=== PATIENT | female | born 1990 | race Caucasian/White ===

== ENCOUNTER 2023-12-07 11:58 | Emergency (ER) | payer OTHER, SELFPAY ==
[2023-12-07 12:02] VITALS: BP 122/88
--- NOTE | 2023-12-07 12:34 | ED.GENMED ---
History of Present Illness
<Magdalene Rojas PA-C - Last Filed: 12/07/23 15:38>
General
Chief Complaint: Abdominal Symptoms
Source: patient
Exam Limitations: none
Time Seen by Provider: 12/07/23 12:34
Nursing documentation reviewed up to this point in time: agreed with
Travel History
Have you had any contact with someone who has COVID-19?: No
Do you have any symptoms of coronavirus? Fever > 100 degrees, chills, cough, shortness of breath, sore throat, loss of taste or smell, muscle aches, or headache?: No
History of Present Illness
History of Present Illness:
33-year-old female, past medical history of recurrent UTIs, presenting to the emergency department today with many episodes of diarrhea for the past 6 days. She states that she has had around 15-20 episodes per day. She has no associated nausea,
vomiting, blood in her stool, melena. She has diffuse crampy abdominal pain at times but no focal pain. She is never had anything like this before. She denies any recent antibiotic use. Of note, she states that she was recently diagnosed with
scleroderma and RA, and is concerned that this might be related to that. She states that her appetite is normal, and however states that she is barely able to drink any fluids due to the fact that it goes straight through her and she feels very
dehydrated. She denies any dizziness, syncopal episodes, lightheadedness. She denies any shortness of breath.
Past History
<Magdalene Rojas PA-C - Last Filed: 12/07/23 15:38>
Past History
ED Past Medical History: Other (UTI, pyelonephritis)
ED Past Surgical History: Orthopedic (Right THR)
Social History
Tobacco: Smoker
Alcohol: Occasional
Drug: None
Personal: Single
Living: with family
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
Family History
Family History: Other (Noncontributory)
Review of Systems
<Magdalene Rojas PA-C - Last Filed: 12/07/23 15:38>
Review of Systems
All Other Systems: ROS reviewed and negative except as documented in HPI and ROS
Phy Exam
<Magdalene Rojas PA-C - Last Filed: 12/07/23 15:38>
Physical Exam
Physical Exam:
Vitals: tachycardia otherwise VSS
General: Patient is well-appearing, no acute distress
Skin: Warm and dry, cap refill less than 2 seconds
Head: normocephalic, atraumatic
Throat: mucous membranes moist
Cardiac: Patient is tachycardic, otherwise regular rhythm, no murmurs
Pulm: Normal respiratory effort
Abdomen: Patient has some mild tenderness to palpation left lower and right lower abdominal quadrants. Non-distended. No organomegaly.
Course
<Magdalene Rojas PA-C - Last Filed: 12/07/23 15:38>
Orders/Labs/Results
Orders:
Orders
12/07/23 12:43
0.9% Sodium Chloride 1000 ml [Nss] 1,000 ml IV BOLUS
12/07/23 13:10
Complete Blood Count/With Diff Urgent
Comprehensive Metabolic Panel Urgent
12/07/23 14:09
C DIFF [C difficile Antigen & Toxins] Urgent
[facility] Source: Feces/Stool
Specimen Description:
Stool Culture Urgent
[facility] Source: Feces/Stool
Specimen Description:
12/07/23 14:17
0.9% Sodium Chloride 500 ml [Nss] 500 ml IV BOLUS
Abnormal Lab Results
12/07/23
13:10
WBC 3.3 L 10^3/uL
(4.8-10.8)
MCH 32.7 H pg
(27.0-31.0)
MCHC 37.4 H g/dL
(33.0-37.0)
Absolute Neuts (auto) 1.3 L 10^3/uL
(1.4-6.5)
Immature Gran % 0.6 H %
(0-0.5)
Neutrophils % 38.1 L %
(42.2-75.2)
Lymphocytes % 53.7 H %
(20.5-51.1)
Potassium 3.2 L mmol/L
(3.5-5.1)
AST 61 H U/L
(14-36)
12/07/23 13:10
12/07/23 13:10
Vital Signs
Initial and Last Documented VS:
Initial Vital Signs
Temp Pulse Resp BP Pulse Ox
98.6 F 107 16 122/88 98
12/07/23 12:02 12/07/23 12:02 12/07/23 12:02 12/07/23 12:02 12/07/23 12:02
Last Documented Vital Signs
Temp Pulse Resp BP Pulse Ox
98.6 F 107 16 98/67 100
12/07/23 12:02 12/07/23 12:02 12/07/23 12:02 12/07/23 15:00 12/07/23 15:15
Suzilt;Pop Medrano, - Last Filed: 12/07/23 13:33>
Orders/Labs/Results
Orders:
Orders
12/07/23 12:43
0.9% Sodium Chloride 1000 ml [Nss] 1,000 ml IV BOLUS
12/07/23 13:10
Complete Blood Count/With Diff Urgent
Comprehensive Metabolic Panel Urgent
12/07/23 14:09
C DIFF [C difficile Antigen & Toxins] Urgent
[facility] Source: Feces/Stool
Specimen Description:
Stool Culture Urgent
[facility] Source: Feces/Stool
Specimen Description:
12/07/23 14:17
0.9% Sodium Chloride 500 ml [Nss] 500 ml IV BOLUS
Abnormal Lab Results
12/07/23
13:10
WBC 3.3 L 10^3/uL
(4.8-10.8)
MCH 32.7 H pg
(27.0-31.0)
MCHC 37.4 H g/dL
(33.0-37.0)
Absolute Neuts (auto) 1.3 L 10^3/uL
(1.4-6.5)
Immature Gran % 0.6 H %
(0-0.5)
Neutrophils % 38.1 L %
(42.2-75.2)
Lymphocytes % 53.7 H %
(20.5-51.1)
Potassium 3.2 L mmol/L
(3.5-5.1)
AST 61 H U/L
(14-36)
12/07/23 13:10
12/07/23 13:10
Vital Signs
Initial and Last Documented VS:
Initial Vital Signs
Temp Pulse Resp BP Pulse Ox
98.6 F 107 16 122/88 98
12/07/23 12:02 12/07/23 12:02 12/07/23 12:02 12/07/23 12:02 12/07/23 12:02
Last Documented Vital Signs
Temp Pulse Resp BP Pulse Ox
98.6 F 107 16 98/67 100
12/07/23 12:02 12/07/23 12:02 12/07/23 12:02 12/07/23 15:00 12/07/23 15:15
Suzilt;Magdalene Rojas PA-C - Last Filed: 12/07/23 15:38>
MDM/Problems Addressed
Differential Diagnosis Includes:
ddx include bacterial or viral acute diarrheal illness, c. diff infection, irritible bowel syndrome, gastroenteritis, methotrexate side effects
MDM/Problems Addressed:
dehydration
diarrhea

Will give fluids, obtain labs, and reassess
Chronic conditions affecting care:
Scleroderma, RA
Acute Exacerbation and/or Progression of Chronic Illness:
n/a
<Magdalene Rojas PA-C - Last Filed: 12/07/23 15:38>
*Pulse Oximetry
Patient hypoxic: no
*Critical Care Note
Total Time (30-74mins, 75-104mins- exclusive of procedures): Not Applicable
Data Reviewed
Review of Other/Old Records Reveals: Records (reviewed ED physician documentation from 10/11/23, 12/30/22, 12/31/19)
Source: patient and records
Further Testing Considered But Not Given:
Considered stool culture regarding patient's methotrexate status and potential general immunocompromise status, however patient has not had any further episodes of diarrhea here in the emergency department
<Magdalene Rojas PA-C - Last Filed: 12/07/23 15:38>
Patient Management
Escalation/DeEscalation of care consider admission/obs:
This is a 33-year-old female with a past medical history of RA, scleroderma on methotrexate presenting to emergency department today with diarrhea for the past 6 days. She denies crampy abdominal pain prior to the diarrhea. She denies nausea or
vomiting. She denies fevers or chills. Denies blood in her stools. Denies recent antibiotic use, recent travel. On exam, patient is well appearing, has mild tenderness in the lower abdominal quadrants on exam. She is tachycardic but otherwise
her vitals are stable. We will plan to give IV fluids to rehydrate her, check labs, and reassess.
Her CBC is unremarkable, her CMP does not show any concerning electrolyte abnormalities. On reassessment, patient does feel better with fluids, and she has not had any further episodes of diarrhea her. Will discharge with PCP follow up, advised
patient to stay well hydrated, drink pedialye, and gave return precautions.
<Magdalene Rojas PA-C - Last Filed: 12/07/23 15:38>
Update Note
Update Note:
2:00 pm--reevaluated patient, patient has not had any further episodes of diarrhea while here in the ED, patient states that she feels very dehydrated still requesting more fluid
ED Attending Note
<Magdalene Rojas PA-C - Last Filed: 12/07/23 15:38>
-
Portions of this chart may have been created with voice recognition software.� Occasional wrong word or��sound alike� substitutions may have occurred due to the inherent limitations of voice recognition software.
<Pop Medrano DO - Last Filed: 12/07/23 13:33>
ED Attending Note
Patient seen and examined by attending physician: Yes
I performed the substantive portion of visit, reviewed & personally made and approve the management plan that is documented in note by myself or TYSHAWN.: Yes
ED Attending Note:
I agree with Magdalene's note.
Patient presents for evaluation of diarrhea. She has had multiple watery stools a day for the past 6 days. No known sick contacts. Patient lives at home with well water. Others live in the home now and are feeling well. No travel. They do have
dogs in the home. Patient was started on methotrexate a couple months ago for scleroderma. The dose was increased to 8 tablets once a week but this predated her diarrhea.
General: Awake, Alert, Oriented X3. No acute distress.
Vitals: unremarkable
Head: Atraumatic
Eyes: Pupils equal, EOMI
Throat: Airway intact, no exudates, dry mucosa
Neck: Trachea midline
Lungs: Clear and equal b/l
Heart: Regular rate, no murmurs
Abd: Soft, Nontender, No pulsatile mass
Skin: Warm, dry, no rash
Extremities: pulses equal b/l, no edema
Discharge Plan
Departure
Patient Disposition: Home (Routine Discharge)
Date of Disposition: 12/07/23
Time of Disposition: 15:32
Patient with high blood pressure during this ER visit?: No
Condition: Good
Discharge Problem:
Diarrhea, Acute dehydration
Instructions: Dehydration, Adult (DC), [place] Diet, Diarrhea, Adult ED
Prescriptions:
No Action
norethindrone-e.estradiol-iron [Loestrin Fe 1.03/17 (28-Day)] 1 EACH tablet
1 ea PO DAILY
ibuprofen 600 MG tablet
600 mg PO Q4HPRN PRN (Reason: pain)
phenazopyridine 200 MG tablet
200 mg PO TIDPRN PRN (Reason: bladder spasms) Qty: 10 10RF
levofloxacin 500 MG tablet
500 mg PO DAILY Qty: 4 0RF
cefuroxime axetil 250 MG tablet
250 mg PO BID Qty: 14 0RF
hydrocodone-acetaminophen 1 TABLET tablet
1 tab PO Q4HPRN PRN (Reason: Moderate to severe pain) Qty: 8 0RF
metronidazole 500 MG tablet
500 mg PO TID Qty: 21 0RF
doxycycline hyclate 100 MG capsule
100 mg PO Q12 Qty: 14 0RF
ondansetron 4 mg tablet,disintegrating
4 mg PO TID PRN (Reason: nausea and vomiting) Qty: 10 0RF
pantoprazole [Protonix] 40 mg tablet,delayed release (DR/EC)
40 mg PO DAILY Qty: 14 0RF
Referrals:
NONE,* [Active] -
Activity Restrictions/Additional Instructions:
Please return to the emergency department should you experience blood in your stools, decreased urinary output, dizziness, intractable vomiting, persistent fever, abdominal pain, or other concerning signs or symptoms.
Please stay well-hydrated. I recommend using Pedialyte to maintain your electrolytes.
Please follow-up with your primary care provider to ensure the resolution of your symptoms and for reassessment.
Interventions
Interventions:
*Risk Screen - Suicide Last Done: 12/07/23 12:02
*General Assessment Last Done: 12/07/23 12:02
*Neglect/Abuse Screening Last Done: 12/07/23 12:02
ED- Fall Risk Assessment Last Done: 12/07/23 12:58
*ED COVID-19 Vaccine History Last Done: 12/07/23 12:58
CZ-Kscwya-Pmnhwpaher Assessment Last Done: 12/07/23 12:58
[2023-12-07 12:58] VITALS: BMI 21.6
[2023-12-07 13:00] VITALS: BP 108/77
[2023-12-07] MEDS: NSS 1000 IV (13:12)
[2023-12-07 13:20] LABS: % Basophils 0.3 % (0-2); % Eosinophils 0.3 % (0-6); % Immature Granulocytes 0.6 % (0-0.5); % Lymphocytes 53.7 % (20.5-51.1); % Neutrophils 38.1 % (42.2-75.2); Absolute Lymphocytes 1.8 10^3/uL (1.2-3.4); Absolute Monocytes 0.2 10^3/uL (0.1-0.6); Absolute Neutrophils 1.3 10^3/uL (1.4-6.5); Hematocrit 39.8 % (37.0-47.0); Hemoglobin 14.9 g/dL (12.0-16.0); Mean Corp Hgb Conc. 37.4 g/dL (33.0-37.0); Mean Corpuscular Hgb 32.7 pg (27.0-31.0); Mean Corpuscular Volume 87.3 fL (81.0-99.0); Mean Platelet Volume 9.2 fL (7.4-10.4); Nucleated Red Blood Cells % 0 %; Platelet Count 283 10^3/uL (130-400); Red Blood Cell Count 4.56 10^6/uL (4.20-5.40); Red Cell Dist. Width 12.1 % (11.5-14.5); White Blood Cell Count 3.3 10^3/uL (4.8-10.8)
[2023-12-07 14:00] VITALS: BP 108/78
[2023-12-07 14:06] LABS: ALT (SGPT) 22 U/L (0-35); AST (SGOT) 61 U/L (14-36); Albumin 3.6 g/dl (3.5-5.0); Alkaline Phosphatase 56 U/L (38-126); Blood Urea Nitrogen 9 mg/dl (7-17); Calcium 8.4 mg/dl (8.4-10.2); Carbon Dioxide 24 mmol/L (22-30); Chloride 106 mmol/L (98-107); Estimated Creatinine Clearance 110 ml/min; Glucose 89 mg/dl (70-99); Potassium 3.2 mmol/L (3.5-5.1); Sodium 135 mmol/L (135-145); Total Bilirubin 0.9 mg/dl (0.2-1.3); Total Protein 6.4 g/dl (6.3-8.2); eGFR > 60.00
[2023-12-07] MEDS: NSS 500 IV (14:46)
[2023-12-07 15:00] VITALS: BP 98/67
[2023-12-07 15:52] VITALS: BP 103/76
== END 2023-12-07 16:14 | disposition home or self-care (01) ==
LOC: EMR 11:58
PROVIDERS: Physician Assistant; EMERGENCY PHYSICIAN Emergency Medicine; FAMILY PHYSICIAN Physician Assistant Medical
DX: R19.7 Diarrhea, unspecified (principal); E86.0 Dehydration
CPT/HCPCS: 99284; 96360; 80053; 85025

== ENCOUNTER → 2023-12-15 11:39 | Outpatient (REF) | payer OTHER, SELFPAY | LOC: HWRAD 11:39 | PROVIDERS: ATTENDING PHYSICIAN Student in an Organized Health Care Education/Training Program | DX: R19.7 Diarrhea, unspecified (principal); R10.30 Lower abdominal pain, unspecified | CPT/HCPCS: 74177; Q9967 ==

== ENCOUNTER → 2024-12-29 11:30 | Outpatient (REF) | payer BC, SELFPAY | LOC: RAD 11:30 | PROVIDERS: ATTENDING PHYSICIAN Internal Medicine; FAMILY PHYSICIAN Internal Medicine | DX: J84.9 Interstitial pulmonary disease, unspecified (principal) | CPT/HCPCS: 71046 ==

== ENCOUNTER → 2025-02-13 08:16 | Outpatient (REF) | payer BC, SELFPAY | LOC: HWRAD 08:16 | PROVIDERS: ATTENDING PHYSICIAN Internal Medicine; FAMILY PHYSICIAN Internal Medicine | DX: J84.9 Interstitial pulmonary disease, unspecified (principal); M34.9 Systemic sclerosis, unspecified | CPT/HCPCS: 71250 ==

== ENCOUNTER → 2025-03-28 13:12 | Outpatient (REF) | payer BC, SELFPAY | LOC: RAD 13:12 | PROVIDERS: ATTENDING PHYSICIAN Specialist; FAMILY PHYSICIAN Internal Medicine | DX: M43.02 Spondylolysis, cervical region (principal) | CPT/HCPCS: 72052 ==

== ENCOUNTER → 2025-07-21 14:15 | Outpatient (REF) | payer BC, SELFPAY | LOC: HWRAD 14:15 | PROVIDERS: ATTENDING PHYSICIAN Internal Medicine | DX: R59.1 Generalized enlarged lymph nodes (principal) | CPT/HCPCS: 76536 ==

== ENCOUNTER → 2025-09-22 10:42 | Outpatient (REF) | payer BC, SELFPAY | LOC: RAD 10:42 | PROVIDERS: ATTENDING PHYSICIAN Internal Medicine Rheumatology; FAMILY PHYSICIAN Internal Medicine | DX: K21.9 Gastro-esophageal reflux disease without esophagitis (principal); M34.9 Systemic sclerosis, unspecified | CPT/HCPCS: 74221 ==